=== PATIENT | male | born 1970 ===

== ENCOUNTER 2021-04-20 07:59 | Emergency (ER) | payer MEDICAID ==
--- NOTE | 2021-04-20 10:35 | NUR ---
04/20/21 1035 Tete Perdomo 1027 PATIENT ARRIVES TO PACU INTUBATED. RESP EVEN AND UNLABORED, ON VENT WITH RATE OF 24. 1034 [facility] AT BEDSIDE WITH AMBULANCE CREW FOR TRANSFER.
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
== END 2021-04-20 10:53 ==
LOC: ED 07:59
DX: S06.309A Unspecified focal traumatic brain injury with loss of consciousness of unspecified duration, initial encounter (principal); S22.42XA Multiple fractures of ribs, left side, initial encounter for closed fracture; S12.401A Unspecified nondisplaced fracture of fifth cervical vertebra, initial encounter for closed fracture; S12.501A Unspecified nondisplaced fracture of sixth cervical vertebra, initial encounter for closed fracture; S22.029A Unspecified fracture of second thoracic vertebra, initial encounter for closed fracture; S22.039A Unspecified fracture of third thoracic vertebra, initial encounter for closed fracture; S36.039A Unspecified laceration of spleen, initial encounter; V89.2XXA Person injured in unspecified motor-vehicle accident, traffic, initial encounter; Z20.822 Contact with and (suspected) exposure to COVID-19
CPT/HCPCS: 00790; 36430; 70450; 71045; 71260; 72125; 72170; 74177; 80053; 81001; 82150; 82550; 83690; 85025; 86850; 86900; 86901; 86920; 90471; 90472; 90648; 90670; 90734; 94002; 96375; 99285-25; C9803; J0171; J0696; J1170; J7060; J7121; P9016; Q9967; U0003